=== PATIENT | female | born 1980 | race Caucasian/White ===

== ENCOUNTER 2016-10-24 14:20 | Emergency (ER) | payer OTHER ==
[~2016-10-24] VITALS: Ht 160 cm; Wt 60.6 kg
[2016-10-24] MEDS ORDERED: XANAX0.25 MG PO (16:27)
[2016-10-24 16:34] VITALS: BP 114/81
== END 2016-10-24 16:39 | disposition home or self-care (01) ==
LOC: EME 14:20
DX: F32.9 Major depressive disorder, single episode, unspecified (principal); F41.0 Panic disorder [episodic paroxysmal anxiety]; F17.200 Nicotine dependence, unspecified, uncomplicated
CPT/HCPCS: 90839; 99281; 99284